=== PATIENT | female | born 1980 | race Caucasian/White ===

== ENCOUNTER → 2017-11-04 | Day surgery (SDC) | payer OTHER ==
--- NOTE | 2017-11-03 15:16 | HP ---
HISTORY OF PRESENT ILLNESS: Ms. Cutler is a 37-year-old woman known to us for previous evaluation for significant lower back pain that radiates into the right anterior thigh. She describes this as s ignificant pain with some mild tenderness to her lower back that is constant in nature. This has bee n developing over the last 2 years. She had a history of L5-S1 spinal fusion up to 14 years ago afte r a water skiing accident and had not had any issues at all until around 2 years ago. This is our la st visit and it has now been two additional years, so she has had this ongoing for 4 years in total. She has a distant MRI from [facility] and that reveals no significant pathology at any level; however, L5-S1 is difficult to assess secondary to artifact. PAST MEDICAL HISTORY: Facto V Leiden disorder, pulmonary embolism and LDD. PAST SURGICAL HISTORY: Left knee ACL reconstruction of the L5-S1 fusion, right ankle arthroscopy, le ft breast lumpectomy, right knee ACL, cholecystectomy, x2. MEDICATIONS: Bupropion, clonazepam, Coumadin, Cymbalta, citalopram, zolpidem, furosemide, oxycodone, simvastatin, ropinirole, Depakote, tromethamine, zolpidem, triamcinolone. ALLERGIES: No known drug allergies. PHYSICAL EXAMINATION: GENERAL: The patient is alert and oriented x3. Gait is mildly antalgic. EXTREMITIES: Lower extremity motor exam is normal. She does have significant tenderness over the gabriela mbosacral junction upon palpation. ASSESSMENT: Lumbar radiculopathy and back pain. PLAN: We will order a CT myelogram to give us additional information on whether her hardware has any dysfunction and to help better assess the area around her hardware as her MRI is insufficient in doi ng so.
[~2017-11-04] MED LIST: Iopamidol-M 200 41% 20 ML VIAL ONE
--- NOTE | 2017-11-04 13:04 | RAD ---
LUMBAR MYELOGRAM: HISTORY: Lumbar radiculopathy. Previous fusion. EXPOSURE: 0.6 minutes 108.1 mGy per m2 FINDINGS: Initial lumbar spine sonography technician radiograph demonstrates bilateral transpedicular screws at L4 and L5. The re are five lumbar type vertebral bodies. Vertebral body height is maintained. There is no fracture . There is moderate loss of disk space height at L4-L5. Decompression and laminectomy defect at the L4-L5 disk space is noted. With regard to the fusion hardware, no perihardware lucency. Successful lumbar puncture. A total of 10 mL of Isovue-M 200 contrast was administered intrathecally at the L2-L3 level. There were no immediate or postprocedure complications. TECHNIQUE: Consent obtained to perform a lumbar puncture for intrathecal contrast administration. The L2-L3 lev el was deemed appropriate. The skin was prepped and draped in a sterile fashion, and 1% Lidocaine, b uffered with sodium bicarbonate, was used for local anesthesia. Under fluoroscopy guidance, a 22 gau ge spinal needle was advanced into the CSF space. There was prompt flow of clear CSF to the hub of t he needle. Via a short tubing catheter, a total of 10 mL of Isovue-200M contrast was administered in trathecally. The patient tolerated the procedure well. No immediate or post procedure complications . IMPRESSION: Successful lumbar puncture for intrathecal contrast administration. Please refer to the post myelogr am CT for further details. POS: BASSEM
--- NOTE | 2017-11-04 13:49 | CT ---
CT LUMBAR MYELOGRAM: INDICATIONS: Lumbar radiculopathy. COMPARISON: Lumbar spine radiograph dated 03/02/2015. TECHNIQUE: Multiple CT images were obtained following the intrathecal administration of a diluted Isovue solutio n. Axial, coronal, and sagittal reformatted images were constructed from the raw data. FINDINGS: There is partial lumbarization of S1. There is posterolateral spinal image instrumentation of L5 to S1. There are laminectomy changes at L5. There is solid osseous incorporation of the interbody bone graft, posterolaterally, at L5-S1. The visualized retroperitoneum and paravertebral soft tissues appear within normal limits. The gallb ladder is surgically absent. At S1-S2, there is no appreciable central canal or neural foraminal narrowing. At L5-S1, there is no appreciable central canal or neural foraminal narrowing. At L4-L5, there is a mild broad-based bulge inducing mild bilateral neural foraminal narrowing. At L3-L4, there is no appreciable central canal or neural foraminal narrowing. There is a mild broad -based bulge. At L2-L3, there is no appreciable central canal or neural foraminal narrowing. At L1-L2, there is no appreciable central canal or neural foraminal narrowing evident. At T12-L1, there is no appreciable central canal or neural foraminal narrowing. There is a small bony hemangioma within L1. The conus is seen to terminate proximally at L1-L2. IMPRESSION: 1. Postoperative change of the lumbar spine, consistent with an L5-S1 posterolateral interbody fusio n with solid osseous incorporation of interbody bone graft. 2. Mild adjacent segment degeneration at L4-L5, causing mild bilateral neural foraminal encroachment without definite impingement. POS: BASSEM
[2017-11-05 07:03] VITALS: BMI 31.1
[2017-11-05 07:04] VITALS: BP 113/82; TEMP 97.9
== END ==
LOC: RAD 09:05
PROVIDERS: ATTEND Neurological Surgery
PROC: B01B1ZZ Fluoroscopy of Spinal Cord using Low Osmolar Contrast (ICD-10-PCS; principal; 2017-11-04)
DX: M51.16 Intervertebral disc disorders with radiculopathy, lumbar region (principal); D68.51 Activated protein C resistance; Z86.711 Personal history of pulmonary embolism; Z79.899 Other long term (current) drug therapy; Z98.1 Arthrodesis status; Z98.890 Other specified postprocedural states
CPT/HCPCS: 62304; 72132

== ENCOUNTER 2018-02-23 05:39 | Day surgery (SDC) | payer OTHER ==
[2018-02-20 08:47] VITALS: BMI 30.4
[2018-02-23] MEDS ORDERED: Thrombin 5000 UNITS/5 ML VIAL ONE (06:17)
[2018-02-23] MEDS ORDERED: Bupivacaine HCl 0.5%/Epinephrine 1:200,000/PF 30 ml Vial ONE (06:17)
[2018-02-23] MEDS ORDERED: Fentanyl 100 MCG/2 ML VIAL ONE ×5 (06:18→09:09)
[2018-02-23 06:24] LABS: #Eosinphils 0.1 thou/uL (0.0-0.7); #Monocytes 0.3 thou/uL (0.11-0.59); #Neutrophils 4.1 thou/uL (1.40-6.50); %Basophils 0.3 % (0.0-1.0); %Eosinophils 1.3 % (0.0-10.0); %Lymphocytes 30.8 % (21.0-51.0); %Monocytes 4.6 % (0.0-10.0); Hemoglobin 13.7 g/dL (12.0-16.0); Mean Corpuscular HGB CONC 33.5 g/dL (32.0-36.0); Mean Corpuscular Hemoglobin 29.8 pg (27.0-31.0); Mean Corpuscular Volume 89.2 fL (78.0-98.0); Mean Platelet Volume 6.3 fL (7.4-10.4); Platelet Count 266 thou/uL (130-400); RBC Distribution Width 12.9 % (11.5-14.5); Red Blood Cell (RBC) Count 4.58 mill/uL (4.20-5.40); White Blood Cell (WBC) Count 6.4 thou/uL (4.8-10.8)
[2018-02-23 06:30] LABS: BHCG - Serum Negative (NEGATIVE); Pregs Control Background? CLEAR/WHITE (CLR/WHITE); Pregs Control Bar Appear? YES (CONTROL BAR)
[2018-02-23 06:34] LABS: INR-International Normal Ratio 1.1; PTT 24.5 SEC (22.9-36.1)
[2018-02-23] MEDS ORDERED: CEFAZOLIN 2 GM/50 ML BAG ONE ×2 (06:40→10:28)
[2018-02-23 06:46] LABS: Anion Gap 13 mmol/L (10-20); BUN (Urea Nitrogen) 6 mg/dL (7.0-18.7); Calc. Creatinine Clearance 109 mL/min (70-130); Calcium 9.7 mg/dL (7.8-10.44); Carbon Dioxide 23 mmol/L (22-29); Chloride 109 mmol/L (98-107); Estimated GFR-MDRD 73; Glucose 99 mg/dL (70-105); Potassium 3.8 mmol/L (3.5-5.1); Sodium 141 mmol/L (136-145)
--- NOTE | 2018-02-23 07:11 | HP ---
HISTORY OF PRESENT ILLNESS: Ms. Cutler is known to us for previous L4-L5 fusion many years ago, who returns now with significant progressive lower back pain. A new myelogram that reveals large pseudoarthrosis between L5 and S1 below her prior fusion. She does have solid bony fusion across L4-L5. She has exhausted all her conservative pain management methods including injections, medications, and therapies and at this point, has reached a point of exasperation and hopes to discuss surgical options. PAST MEDICAL HISTORY: Significant for TIAs and Factor V Leiden. PAST SURGICAL HISTORY: Right knee ACL, left knee ACL, L4-L5 spinal fusion, section x2, breast lumpectomy, right ankle repair, and cholecystectomy. CURRENT MEDICATIONS: 1. Coumadin. 2. Aspirin. 3. Simvastatin. 4. Requip. 5. Ambien. 6. Zanaflex. 7. Ibuprofen. 8. Lamictal. 9. Klonopin. ALLERGIES: NO KNOWN DRUG ALLERGIES. PHYSICAL EXAMINATION: GENERAL: The patient is alert and oriented x3. EXTREMITIES: Gait is severely antalgic. Lower extremity motor exam is normal. ASSESSMENT: Severe chronic lower back pain and pseudarthrosis. PLAN: Dr. Thompson met with the patient, reviewed imaging, and advocated for revision lumbar fusion at L5-S1 with removal of hardware at L4-L5. He explained to the patient the risks, benefits, and alternatives of the procedure. The patient expressed understanding and elected to move forward with surgery as discussed. I do believe that the patient is mentally competent and capable of making medical decisions for herself. We will move forward with surgery as planned. Job ID: [id number]
[2018-02-23] MEDS ORDERED: Promethazine HCl 25 MG/ML VIAL ONE (08:31)
[2018-02-23] MEDS ORDERED: Midazolam HCl 2 mg/2 ml Vial ONE (08:38)
[2018-02-23] MEDS ORDERED: HYDROmorphone 2 MG/ML VIAL ONE (08:49)
--- NOTE | 2018-02-23 09:47 | OP ---
DATE OF PROCEDURE: 02/23/2018 RELEASE COORDINATOR: Huseyin Gee PA-C INDICATION: Pain. DIAGNOSES: Adjacent segment disease with a pseudoarthrosis. PROCEDURES PERFORMED: Reoperation arthrodesis with placement of allograft and placement of autograft and exploration of fusion. ANESTHESIA: General. TECHNIQUE: The patient was brought into the operating room, placed under general anesthesia. She was flipped from the supine to prone position on the operating room table. The prior linear incision was identified and prepped and draped in usual sterile fashion. After prepping and draping and after a preoperative pause, the incision was created. The soft tissues were swept away of midline. The patient's prior fusion construct located at L4-L5 was identified. We explored the fusion and now in this area as there was ectopic bone present along the inferior margin of the screws. I then decided to perform an arthrodesis by drilling down the L5-S1 segment at the location of the lateral confines of the lamina and the medial aspect and inferior aspect of the facet joints at this area. After decorticating bone in this region and irrigating it well, allograft and autograft material were then placed in the lateral confines of the lamina and facet joints for the purposes of fusion. We did not instrument the patient nor do we remove instrumentation. The wound was irrigated. Hemostasis was maintained throughout. The wound was then closed in anatomic layers and a pressure dressing was applied. There were no known procedural complications. Job ID: [id number]
[2018-02-23] MEDS ORDERED: HYDROcodone/Acetaminophen 5/325 mg Tablet ONE (10:03)
[2018-02-23] MEDS ORDERED: Lidocaine 1% PF 5 ML VIAL ONE (14:53)
[2018-02-23] MEDS ORDERED: PROPOFOL 200 MG/20 ML VIAL ONE (14:53)
[2018-02-23] MEDS ORDERED: Ketorolac Tromethamine 30 MG/ML VIAL ONE (14:53)
[2018-02-23] MEDS ORDERED: Ondansetron PF 4 MG/2 ML Vial ONE (14:53)
[2018-02-23] MEDS ORDERED: Dexamethasone 20 MG/5 ML VIAL ONE (14:53)
[2018-02-23] MEDS ORDERED: PHENYLEPHRINE-NS 100 MCG/ML 10 ML SYRINGE ONE (14:53)
[2018-02-23] MEDS ORDERED: Glycopyrrolate 0.2 MG/ML 5 ML SYRINGE ONE (14:53)
== END 2018-02-23 11:15 | disposition home or self-care (01) ==
LOC: SDC 05:39
PROVIDERS: ATTEND Neurological Surgery
PROC: 0SG3071 Fusion of Lumbosacral Joint with Autologous Tissue Substitute, Posterior Approach, Posterior Column, Open Approach (ICD-10-PCS; principal; 2018-02-23)
DX: M96.0 Pseudarthrosis after fusion or arthrodesis (principal); G89.29 Other chronic pain; M54.5 Low back pain; D68.2 Hereditary deficiency of other clotting factors; Z86.73 Personal history of transient ischemic attack (TIA), and cerebral infarction without residual deficits; Z79.01 Long term (current) use of anticoagulants; Z79.82 Long term (current) use of aspirin; Z79.899 Other long term (current) drug therapy; Z91.048 Other nonmedicinal substance allergy status; Z98.1 Arthrodesis status
CPT/HCPCS: 36415; 76000; 80048; 84703; 85025; 85610; 85730; J0131; J0670; J1100; J1170; J1885; J2001; J2250; J2405; J2550; J2704; J3010

== ENCOUNTER 2020-06-10 14:45 | Observation (INO) | payer OTHER ==
[2020-06-10 16:44] LABS: #Eosinphils 0.4 thou/uL (0.0-0.7); #Monocytes 0.4 thou/uL (0.11-0.59); #Neutrophils 6.4 thou/uL (1.40-6.50); %Basophils 0.3 % (0.0-1.0); %Eosinophils 4.3 % (0.0-10.0); %Lymphocytes 21.1 % (21.0-51.0); %Monocytes 4.6 % (0.0-10.0); %Neutrophils 69.6 % (42.0-75.0); Mean Corpuscular HGB CONC 33.7 g/dL (32.0-36.0); Mean Corpuscular Hemoglobin 32.2 pg (27.0-31.0); Mean Corpuscular Volume 95.5 fL (78.0-98.0); Mean Platelet Volume 7.3 fL (7.4-10.4); Platelet Count 228 thou/uL (130-400); RBC Distribution Width 11.6 % (11.5-14.5); Red Blood Cell (RBC) Count 4.36 mill/uL (4.20-5.40); White Blood Cell (WBC) Count 9.3 thou/uL (4.8-10.8)
[2020-06-10 16:55] LABS: BHCG - Serum Negative (NEGATIVE); Pregs Control Background? CLEAR/WHITE (CLR/WHITE); Pregs Control Bar Appear? YES (CONTROL BAR)
[2020-06-10 17:11] LABS: ALT (SGPT) 15 U/L (8-55); AST (SGOT) 14 U/L (5-34); Albumin 4.4 g/dL (3.5-5.0); Alkaline Phosphatase 94 U/L (40-110); Anion Gap 14 mmol/L (10-20); BUN (Urea Nitrogen) 5 mg/dL (7.0-18.7); Bilirubin, Total 0.4 mg/dL (0.2-1.2); Calc. Creatinine Clearance 0 mL/min (70-130); Calcium 9.2 mg/dL (7.8-10.44); Carbon Dioxide 23 mmol/L (22-29); Chloride 108 mmol/L (98-107); Glucose 94 mg/dL (70-105); Potassium 4.1 mmol/L (3.5-5.1); Protein, Total 7.4 g/dL (6.0-8.3); Sodium 141 mmol/L (136-145)
[2020-06-10 17:16] LABS: CKMB 0.3 ng/mL (0-6.6)
[2020-06-10] MEDS ORDERED: diphenhydrAMINE 50 MG/ML VIAL ONE (17:44)
[2020-06-10] MEDS ORDERED: Metoclopramide HCl 10 MG/2 ML VIAL ONE (17:44)
[2020-06-10 21:29] LABS: Troponin I 0.027 ng/mL (< 0.028)
[2020-06-10 23:58] LABS: Troponin I 0.014 ng/mL (< 0.028)
[2020-06-11] MEDS ORDERED: Zolpidem Tartrate 5 MG TAB PO SCH ×2 (00:15→21:00)
[2020-06-11 00:34] VITALS: BMI 34.8
[2020-06-11 03:29] LABS: SARS-CoV-2 NAA Rapid Test Not Detected (NotDetected)
[2020-06-11] MEDS ORDERED: Apixaban 5 MG TAB PO SCH ×2 (04:45→21:00)
[2020-06-11 05:03] LABS: #Eosinphils 0.3 thou/uL (0.0-0.7); #Lymphocytes 2.3 thou/uL (1.20-3.40); #Monocytes 0.4 thou/uL (0.11-0.59); #Neutrophils 2.9 thou/uL (1.40-6.50); %Basophils 0.6 % (0.0-1.0); %Eosinophils 4.9 % (0.0-10.0); %Lymphocytes 38.5 % (21.0-51.0); Hemoglobin 12.9 g/dL (12.0-16.0); Mean Corpuscular HGB CONC 33.4 g/dL (32.0-36.0); Mean Corpuscular Hemoglobin 31.9 pg (27.0-31.0); Mean Corpuscular Volume 95.5 fL (78.0-98.0); Mean Platelet Volume 7.5 fL (7.4-10.4); Platelet Count 189 thou/uL (130-400); RBC Distribution Width 11.7 % (11.5-14.5); Red Blood Cell (RBC) Count 4.03 mill/uL (4.20-5.40)
[2020-06-11 05:27] LABS: Anion Gap 12 mmol/L (10-20); BUN (Urea Nitrogen) 8 mg/dL (7.0-18.7); Calc. Creatinine Clearance 122 mL/min (70-130); Calcium 8.3 mg/dL (7.8-10.44); Carbon Dioxide 20 mmol/L (22-29); Chloride 113 mmol/L (98-107); Cholesterol 161 mg/dl (< 200 Desired); Glucose 86 mg/dL (70-105); HDL Cholesterol 27 mg/dL (>60 Neg Risk); LDL Cholesterol, Calculated 101 mg/dL; Potassium 3.6 mmol/L (3.5-5.1); Sodium 141 mmol/L (136-145); Triglycerides 166 mg/dL (Less than 150)
[2020-06-11] MEDS ORDERED: Aspirin Chewable 81 MG TAB PO SCH (09:00)
[2020-06-11] MEDS: Aspirin Chewable 81 MG TAB PO SCH (09:37)
[2020-06-11] MEDS ORDERED: tiZANidine HCl 4 MG TAB PO PRN (10:44)
[2020-06-11] MEDS ORDERED: Acetaminophen 500 MG TAB PO PRN (10:46)
[2020-06-11] MEDS ORDERED: FLUoxetine HCl 10 MG CAP PO SCH (11:15)
[2020-06-11] MEDS ORDERED: lamoTRIgine 100 MG TAB PO SCH (11:15)
[2020-06-11] MEDS: HYDROcodone/Acetaminophen 10/325 mg Tablet PO PRN ×2 (11:16→17:54)
[2020-06-11] MEDS: clonazePAM 1 MG TAB PO PRN (11:20)
[2020-06-11] MEDS: Lidocaine 5% Patch TD SCH (15:04)
[2020-06-11] MEDS ORDERED: Loperamide HCl 1 MG/7.5 ML UDCUP PO PRN (17:34)
[2020-06-11] MEDS: tiZANidine HCl 4 MG TAB PO SCH (17:54)
[2020-06-11] MEDS: Apixaban 5 MG TAB PO SCH (20:25)
[2020-06-11] MEDS: FLUoxetine HCl 10 MG CAP PO SCH (20:26)
[2020-06-11] MEDS ORDERED: rOPINIRole HCl 1 MG TAB PO SCH (21:00)
[2020-06-11] MEDS ORDERED: Atorvastatin Calcium 10 MG TAB PO SCH (21:00)
[2020-06-12] MEDS: HYDROcodone/Acetaminophen 10/325 mg Tablet PO PRN ×3 (00:14→15:23)
[2020-06-12] MEDS: tiZANidine HCl 4 MG TAB PO SCH ×3 (00:14→12:36)
[2020-06-12] MEDS: clonazePAM 1 MG TAB PO PRN (00:30)
[2020-06-12] MEDS ORDERED: Transdermal Patch Removal TOP SCH (03:00)
[2020-06-12] MEDS: Aspirin Chewable 81 MG TAB PO SCH (08:42)
[2020-06-12] MEDS: Apixaban 5 MG TAB PO SCH (08:43)
[2020-06-12] MEDS: FLUoxetine HCl 10 MG CAP PO SCH (09:00)
[2020-06-12] MEDS ORDERED: lamoTRIgine 100 MG TAB PO SCH (09:00)
[2020-06-12 11:41] VITALS: TEMP 97.9
[2020-06-12] MEDS ORDERED: traMADol HCl 50 MG TAB PO SCH (12:15)
[2020-06-12] MEDS: Lidocaine 5% Patch TD SCH (15:24)
[2020-06-12 15:53] VITALS: BP 116/80
== END 2020-06-12 17:31 | disposition home or self-care (01) ==
LOC: ERS 14:45 → 2SE 20:21
PROVIDERS: ADMIT Student in an Organized Health Care Education/Training Program; ATTEND Hospitalist
DX: G45.9 Transient cerebral ischemic attack, unspecified (principal); D68.51 Activated protein C resistance; I42.8 Other cardiomyopathies; F17.210 Nicotine dependence, cigarettes, uncomplicated; G89.29 Other chronic pain; M54.5 Low back pain; I08.1 Rheumatic disorders of both mitral and tricuspid valves; Z86.711 Personal history of pulmonary embolism; Z86.73 Personal history of transient ischemic attack (TIA), and cerebral infarction without residual deficits; Z79.01 Long term (current) use of anticoagulants; Z79.899 Other long term (current) drug therapy; Z91.048 Other nonmedicinal substance allergy status; Z95.810 Presence of automatic (implantable) cardiac defibrillator; Z98.1 Arthrodesis status; Z20.822 Contact with and (suspected) exposure to COVID-19
CPT/HCPCS: 0240U; 36415; 70450; 70551; 71045; 80048; 80053; 80061; 82553; 84484; 84703; 85025; 85379; 93005; 93306; 95712; 95819; 95957; 96374; 96375; G0378; J1200; J2765

== ENCOUNTER 2021-03-22 02:08 | Emergency (ER) | payer OTHER, SELFPAY | END 2021-03-22 02:20 | disposition E | LOC: ERS 02:08 | DX: S01.93XA Puncture wound without foreign body of unspecified part of head, initial encounter (principal); I46.9 Cardiac arrest, cause unspecified; E78.5 Hyperlipidemia, unspecified; F17.210 Nicotine dependence, cigarettes, uncomplicated; I42.9 Cardiomyopathy, unspecified; Z86.711 Personal history of pulmonary embolism; Z86.73 Personal history of transient ischemic attack (TIA), and cerebral infarction without residual deficits | CPT/HCPCS: 36430; 86850; 86900; 86901; 94002; 96374; G0390; P9016 ==